=== PATIENT | female | born 1935 | race Caucasian/White ===

== ENCOUNTER 2016-04-03 14:00 | Outpatient (CLI) | payer MEDICARE, MEDICAID ==
--- NOTE | 2016-04-10 22:58 | CONSULTATION NOTE ---
DATE OF CONSULTATION: 04/03/2016 00:00:00 REQUESTING PROVIDER: DANIELLE Houser TIME OF VISIT: 1400 to 1515 TOPIC: Initial palliative care consult. Thank you, DANIELLE Houser, for asking the palliative care consult service to be involved in the care of your patient. I am asked to provide support as far as defining goals of care and symptom management in the patient's setting, which is the [facility]. History obtained from sons, medical records. EXAMINATION LIMITATIONS: There is very little information because of patient's severe Alzheimer's as far as her medical records and knowledge of her history. BRIEF HISTORY OF PRESENT ILLNESS: This is an 81-year-old woman with severe and advanced Alzheimer's. She has been in her current setting for several years now but most recently had aspirated. It is uncl ear exactly the etiology but suspected aspiration on vomitus. She did end up with severe shortness of breath and wheezing, sent to the ER, spent several hours there. Her chest x-ray and exam did not rev eal any specific findings and was sent back to the facility. Unfortunately, she continued to worsen w ith increased shortness of breath, hypoxia, and concern for pneumonia. She was then seen by her PCP i n the facility and started on azithromycin and nebulizing treatments and has continued to improve. To day I find her with just some upper airway expiratory wheezing, no longer needing oxygen. She is eati ng and drinking without any difficulty, almost back to her baseline, and appears quite comfortable. In the context of this episode there was discussion about defining goals of care as the patient's [facility] form IS A DO NOT RESUSCITATE AND COMFORT MEASURES ONLY. This always puts facilities in a place of weighing benefits and burdens but, given regulations, often has to send them in. The patient is on ve ry few medications, does not have any behavioral issues. She is mostly nonverbal, a few words here an d there. She does not follow any directions or cuing. She does have some significant toning and is po sitioned in an extensive positioning in her wheelchair, thus causing increasing risk for sliding out and falls. She has remained weight neutral, between 140-148 over the last year. She is not on any med ications to manage her behaviors. Her most significant symptom, and this is from the past, was pickin g. They have her on some hydroxyzine and has, as best we know, no longer been a problem. PAST MEDICAL HISTORY: Positive for severe dementia, being wheelchair bound; osteoporosis; and a right knee replacement. MEDICATION ALLERGIES: NONE. MEDICATIONS: Her current medication list includes: 1. Alendronate sodium 35 mg 1 tablet once weekly. 2. Citalopram 20 mg daily. 3. Docusate sodium 100 mg b.i.d. 4. Hydroxyzine 25 mg 1 tab b.i.d. 5. Oyster shell calcium 500 mg b.i.d. 6. Senolax 8.6 mg 1 tab daily. 7. Vitamin D3 1000 units daily. 8. Acetaminophen 325 mg 2 tabs every 6 hours p.r.n. 9. Enema as needed for constipation. 10. Fleets glycerin suppository as needed for constipation if no results from milk of mag. 11. Ipratropium albuterol 0.5 ml 2.5 mg in 3 mL, inhale 3 mL via nebulizer every 4-6 hours as needed . 12. Milk of mag 30 mL p.r.n. 13. MiraLax 17 grams daily as needed for constipation. 14. Transderm scop apply 1 patch to hairless area behind ear q.3 days p.r.n. for increased secretions . CODE STATUS: THE PATIENT IS A DO NOT ATTEMPT RESUSCITATION, COMFORT MEASURES ONLY. Please see palliat hilary care discussion; this was redone, the POLST today without changes on those 2 points. SOCIAL HISTORY: The patient was actually a fairly gregarious, outgoing woman in her time. She loved [employer]. She was in a choir that sang [employer] and actually sang at the [employer]. She is [employer]ol [employer]. She has had multiple careers over the lifetime. She has 2 sons and a daughter. She and her second lived in [place] for 7 years and had a baking business. 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 Marital status: . Use of alcohol, tobacco: None. FAMILY HISTORY: The patient is adopted and so it is unknown. Actually, we had a yulissa discussion abo ut doing possibly ancestry swab for the children to get more information. PERFORMANCE STATUS: The patient is wheelchair/bed bound. She is unable to bear weight. She has quite a bit of extensive toning, some contractures in her knees and hips. She is total assist with feeding. She has not had any observations of choking by caregivers noted. She is quite cooperative. She is in continent of bowel and bladder, and is in a wheelchair that does not fit her appropriately. I would p ut her at a palliative care performance status of 40%. REVIEW OF SYSTEMS: This is a somewhat limited. Input from the caregivers: ENT: No notable swallowing problems, does need to be fed. CARDIOVASCULAR: No signs of pain or cardiac pain. RESPIRATORY: They have noted she has been somewhat wheezy, but her respiratory status has improved si nce her trip to the ED on 03/11. GASTROINTESTINAL: She has intermittent loose stools. She had one during our visit. GENITOURINARY: She is incontinent of urine. MUSCULOSKELETAL: She is quite stiff with lots of toning. INTEGUMENTARY: She has no skin breakdown or rash. Her sons report she has had issues with picking in the past. NEUROLOGIC: She has been fairly nonverbal and unable to communicate meaningfully for several years. S he did used to sing up to a couple months ago, if you asked her a question, her answers, but this has somewhat fallen off as well. She does present with a peaceful and smiley affect. PSYCHIATRIC: In reviewing her history, the patient did not have any or delusions or hallucinations; i t was mostly just deteriorating memory and poor judgment, and unable to take care of her activities o f daily living that preceded her admit here to [facility]. ENDOCRINE: No history of hyperthyroidism or diabetes, as best we know. HEMATOLOGIC/IMMUNOLOGIC: Most recently was treated for presumed pneumonia or aspiration pneumonia. PHYSICAL EXAMINATION GENERAL APPEARANCE: She does appear somewhat fatigued, pale in color, quite smiley in countenance. EYES: Normal on inspection. She tends to keep them closed, squeezed closed, but opens them easily. ENT: Mucous membranes are moist, no signs or symptoms of candidiasis. NECK: Trachea is midline. RESPIRATORY: As above, she has some upper expiratory wheezing. CARDIOVASCULAR: Her rate was regular at 88. Temperature 97.2. Oxygen saturation 95% on room air. Her blood pressure 122/82. ABDOMEN: Rounded. Bowel tones active. Incontinent of liquid brown stool. SKIN: Slightly dry, particularly on the back of her forearms; otherwise no signs or symptoms of skin breakdown. Her coccyx is clear. EXTREMITIES: She does have some mild tremors in her upper extremities. No edema. PALLIATIVE CARE DISCUSSION: Who was present: Her son, Armaan Wellington (Harry), who is her POA; as well as her other son, Abdelrahman Wellington. We did discuss, in the context of their perception of her current q uality of life, recognizing that she continues to progress with her dementia. They had not had long o r extensive discussions in the past with their mother about her wishes in the future. They do want to focus most of her care on comfort, recognizing that she is quite frail and fragile and at risk for t he sequela of an event. We did discuss, in the context of dementia, end of life is usually infections or as a result of the sequela of a fall; that each time these situations, as they have just recently experienced, are faced with weighing the benefits and burdens of intervention and how much intervent ion. Their goal again is to keep her comfortable and would not want her to suffer in any way. They ar e not opposed to treatment of infections at this point in time, but would need to be in the context a gain for comfort and hoping to avoid hospitalization. We did review the POLST as it did have a trial of tube feeding. We did discuss in the setting of her current disease process that this would most li des put her at higher risk for aspiration as well as prolong her dying process and her suffering. As far as looking forward to end of life, neither one feels that they would be able to take care of her in their own home setting and would prefer to have Hospice in [facility] at the point of time that she does meet that threshold or criteria. Did review that for patients with dementia it is often a fa irly long course with crises that can come up as events occur, and Hospice criteria does include many times with multiple hospitalizations or infections or, if they choose at some point not to treat inf ection, as well as weight loss and further decline. In discussing the role of palliative care, I am m onitoring her for further decline and being able to focus on issues of comfort for her. IMPRESSION: This is an 82-year-old woman with advanced stage Alzheimer's who continues to decline. Sh e most recently was treated for upper respiratory infection with just some residual wheezing currentl y. The patient does need a uzib-md-tkict wheelchair to facilitate safety, feeding, and comfort. Famil y goals include focusing on avoiding hospitalization, keeping her comfortable, and a comfortable resp ectful at her end of life. RECOMMENDATIONS/COUNSELING DONE 1. Wheezing. The patient still has some residual upper airway wheezing. Will have the staff give her nebulizer treatment scheduled for a few days until this is cleared. The patient does present with hig h risk for aspiration and further decline. 2. Loose stool. Will decrease her docusate sodium and re-evaluate in 2 weeks. Bowel program. 3. Rigid extension and muscle tone of her back. The patient does require a ivlc-cg-hwydw wheelchair a s she is wheelchair bound. Currently, given her extensive toning and unable to sit properly in a whee lchair, she does need it for positioning. She is dependent on the wheelchair to be able to participat e in eating, transfer to the shower, and as well as mobility in the home. She is in a facility that i s able to provide assistance with the wheelchair. She would benefit for this hhgs-yv-rilfo for proper positioning, decreasing her pressure as she does have some pressure points where she tones against t he edge of the wheelchair. They will continue with pursuit of a zvwg-xm-tutxe wheelchair order. There is one available that the family may choose to purchase if it fits her appropriately and would be mo re immediate solution to the current problem. 4. Advanced care planning. I did spend quite a bit of time with both sons talking about goals of care , decision making and decision making points in the future regarding their mother, limitations in the context of this setting, looking forward at Hospice criteria. I did provide [facility] [place] [facility] as a reference. The agreement was I would follow up with their mother in another couple weeks to see if she continues to recover from her current episode, and check in every few months to rio he r decline and make sure the focus is on comfort, simplify medications as needed, and continue to eval uate for swallowing difficulties. Thank you, DANIELLE Houser, for asking the palliative care consult service to be involved in the care of your patient. The patient's prognosis, when measured on the Doug index for nursing h ome adults age 65 and older with an outcome of 6 months survival out of 100 shelter adults with similar answers, 28 will and 72 will survive over the next 6 months but calculators cannot predic t the future for any one individual, but do give an estimate of how many people with similar risk fac tors will live and , but they cannot identify who will live and . TIME SPENT: 75 minutes, with greater than 50% of this done in counseling with the family, coordinatin g care within the facility, and anticipatory guidance. JOB #: [id number] EXT JOB #:[id number]
== END 2016-04-03 14:01 | disposition home or self-care (01) ==
LOC: PC 14:00
PROVIDERS: ATTEND Nurse Practitioner Adult Health
DX: R06.00 Dyspnea, unspecified (principal); G30.8 Other Alzheimer's disease; F02.80 Dementia in other diseases classified elsewhere, unspecified severity, without behavioral disturbance, psychotic disturbance, mood disturbance, and anxiety; R06.02 Shortness of breath; R09.02 Hypoxemia; Z99.3 Dependence on wheelchair; M81.0 Age-related osteoporosis without current pathological fracture; Z96.651 Presence of right artificial knee joint; M24.552 Contracture, left hip; M24.551 Contracture, right hip; M24.562 Contracture, left knee; M24.561 Contracture, right knee; N39.498 Other specified urinary incontinence; J18.9 Pneumonia, unspecified organism; R06.2 Wheezing; Z91.81 History of falling; Z66 Do not resuscitate; Z51.5 Encounter for palliative care

== ENCOUNTER 2016-04-09 11:15 | Outpatient (CLI) | payer MEDICARE, MEDICAID | END 2016-04-09 11:16 | disposition home or self-care (01) | DX: J18.9 Pneumonia, unspecified organism (principal); R19.7 Diarrhea, unspecified; G30.9 Alzheimer's disease, unspecified; F02.80 Dementia in other diseases classified elsewhere, unspecified severity, without behavioral disturbance, psychotic disturbance, mood disturbance, and anxiety; Z99.3 Dependence on wheelchair; Z51.5 Encounter for palliative care ==

== ENCOUNTER 2016-04-30 | Outpatient (CLI) | payer MEDICARE, MEDICAID ==
--- NOTE | 2016-05-01 09:10 | CONSULTATION NOTE ---
DATE OF CONSULTATION: 04/30/2016 00:00:00 TIME OF VISIT: 1111:30. TOPIC: Followup palliative care consult. Thank you, Mima Portillo, for asking the palliative care consult service to be involved in the c are of your patient. I am seeing the patient in followup after her community-acquired pneumonia. She is seen in her home setting, which is [facility] dementia unit. It is a considerable and taxing effo rt for her to leave the facility as she is wheelchair bound. BRIEF HISTORY OF PRESENT ILLNESS/INTERVAL UPDATE: The patient does have severe endstage Alzheimer's, who presents with a FAST 7B. She presented in mid February for a presumed aspiration pneumonia and wa s treated with azithromycin and nebulizer treatment and did improve. She had a recurrence, unclear if aspiration versus community-acquired. There has been much illness in the facility and was treated on 04/09. She has continued to improve. Today, I find her doing quite well. She has been off of the oxy gen now for 3 days. Her oxygen sats are 97%. She shows no respiratory effort. No cough. She seems mor e alert and staff have found about her more interactive. She has no inspiratory or expiratory wheezin g. Her breath sounds are diminished, but clear. I have followed up with staff who feed her. Nobody vargas s seen any evidence of choking or difficulty with thin or fluids or solid foods. She is afebrile toda y at 96.9. The patient is quite "smiley" and did actually when asked to sing, which is her baseline l ovely behavior, she was able to do that several times, which is helpful as far as actually evaluating her respiratory status. I am meeting today with her daughter per her request. She was not present with the family meeting on original admit. Her name is Yael Kramer, . She is quite pleased to see her mother doing be tter. REVIEW OF SYSTEMS: This is quite difficult to do. The staff report her appetite has been good. She vargas s been sleeping without any difficulty. She has no agitation. She does sleep on and off, mostly throu gh the day. This is her baseline. She is getting more difficult to transfer. She does plank and is qu ite stiff. It is precarious at best in the wheelchair. They had tried the cdrw-tt-qvwma wheelchair th at had been donated; unfortunately it was too large for her and posed more of a safety risk. PHYSICAL EXAMINATION GENERAL APPEARANCE: She is a slightly pale. Her respiratory effort is much improved. EYES: She has them open today, does make eye contact. ENT: Mucous membranes are moist. NECK: Trachea midline, no JVD. RESPIRATORY: As noted above. CARDIOVASCULAR: Her pulse is 73, blood pressure 122/72. Her heart rate is irregular. She has a fairly pronounced murmur. ABDOMEN: Soft. She still has been having loose stools. SKIN: Color is pale. No report of skin breakdown. She is dressed during our exam. EXTREMITIES: No lower extremity edema. IMPRESSION: This is a very sweet, severe end-stage Alzheimer's, who presents as 7B. Her pneumonia has resolved with no residual symptoms. RECOMMENDATIONS/COUNSELING DONE 1. Community-acquired pneumonia. This appears to be resolved. We will change her back to her DuoNebs to do as p.r.n. 2. Diarrhea. Had held the bowel medications for 10 days. We will go ahead and hold these indefinitely at this point in time. 3. Dementia without behavioral disturbances. She does seem quite content. Staff reports no difficulty with her behaviors. 4. Rigid extension and muscle tone of her back. The patient has required tilt in space wheelchair; hardy arvizu is wheelchair bound, currently, given her aspects of toning and planking and unable to prop her in a wheelchair. She does need it for positioning. She is dependent on the wheelchair to be able to part icipate in eating, transfer to the shower, as well as mobility at her current setting. There is staff to provide assistance with the wheelchair. She would benefit for the tilt in space for proper positi oning, decrease her pressure points when she tones at the edge of the wheelchair, as well as safe eat ing and swallowing. She is a [facility] patient. We will go ahead and order that through [employer], got permission from the home health director. Face to face for physical therapy to do a [facility] eval and evaluate and treat if any training for staff on range of motion, as well as a wheel chair sitting. 5. Advanced care planning. The patient does have her new POLST in place, which is a DO NOT RESUSCITAT E, COMFORT MEASURES ONLY, DETERMINE THE USE OR LIMITATION OF ANTIBIOTICS WHEN INFECTION OCCURS WITH C OMFORT THE GOAL AND NO MEDICALLY ASSISTED NUTRITION BY TUBE. I did spend quite a bit of time with the daughter in reviewing goals of care for her mom, some of her life review, and anticipatory jose ramon ce. TIME SPENT: Thirty minutes with greater than 50% of this done in counseling and coordination of care, follow up with facility, physical therapy. They are not able to accommodate this because of her insu cecilia status. We will have Mima Portillo as her PCP order physical therapy for wheelchair eval, as well as facilitate getting the tilt in space. JOB #: [id number] EXT JOB #:[id number]
== END 2016-04-30 11:01 | disposition home or self-care (01) ==

== ENCOUNTER 2016-08-06 11:00 | Outpatient (CLI) | payer MEDICARE, MEDICAID ==
--- NOTE | 2016-08-07 06:29 | CONSULTATION NOTE ---
DATE OF CONSULTATION: 08/06/2016 00:00:00 REQUESTING PROVIDER: DANIELLE Houser. TIME OF VISIT: 11:15 to 12:15. TOPIC: Followup palliative care consult. Thank you, Mima Portillo, for asking the palliative care consult service to be involved in the c are of your patient. I am following up the patient in her home setting, which is [facility] dementia unit as it is a considerable and taxing effort for her to leave the facility, as she is wheelchair b ound. 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 She most recently in February was treated for presumed aspiration pneumonia. She did recover from this and was doing fairly well. I am seeing her today. There is concern about her le ade of sedation, she may just be sleeping more. In reviewing her medications, did look at some things that we might be able to decrease. I am meeting here with her daughter, Flores Kramer, and son, Addy arauz. She has moved rooms. Does not appear in any kind of distress. I did follow up with staff. She has had no neuropsychiatric behaviors. She is quite cooperative, but does spend most of her time, probabl y 70-80% of the time sleeping, mostly upright in her chair. Unfortunately, still has not gotten the t [id number] wheelchair so that it used appropriately. Originally, had written for therapy to come in and order it. They had decided to pay to have one refurbished. REVIEW OF SYSTEMS: This is quite difficult to do. Appetite has been good. She has been fairly weight neutral. Her most recent weights were March, 146.2; April, 148.2; May, 147.2; June, 149.2; an d July, 145. As far as accuracy, these are done with weighing the patient and then weighing the wheelc hair. She is getting more difficult to transfer, does what I call "plank" and is quite stiff. Is prec arious at best in the wheelchair. Thus, this is a huge safety issue. PHYSICAL EXAMINATION GENERAL: She is slightly pale. She is less interactive than our last visit. She is keeping her eyes c losed most of the time despite being here with her children. She has no symptoms or signs of pain beh aviors, agitation or distress. EYES: Slight periorbital edema. ENT: Her mucous membranes are moist, and she will not allow me to do an oral exam. NECK: Trachea midline. No lymphadenopathy. RESPIRATORY: Breath sounds are diminished, but difficult to evaluate as she does not take deep breath s. VITAL SIGNS: Temperature 97.5, O2 saturation on room air 95%, pulse 67, blood pressure 102/62. HEART: Her heart is very irregular and has a fairly pronounced murmur. ABDOMEN: Soft with regular with bowel movements. SKIN: Color is pale. I did check with staff. No report of skin breakdown. She does have a slight rash on the right fold and around her lips. This is not new per her daughter's report. They are using obinna e Aquaphor. She does have some moist desquamation under her right breast. EXTREMITIES: Her feet are slightly cool to touch. No lower extremity edema. CURRENT MEDICATIONS Include 1. Alendronate sodium 35 mg weekly on an empty stomach. 2. Citalopram 20 mg daily. She has been on this long-term. 3. Docusate sodium 100 mg soft gels daily. 4. Hydroxyzine 25 mg b.i.d. 5. Oyster shell calcium 500 mg 1 tab twice a day. 6. Senolax 8.6 mg tabs every evening. 7. Vitamin D3 1000 units daily. 8. Acetaminophen 325 mg 2 tabs every 6 hours as needed for pain. 9. Enema p.r.n. for constipation if no results from milk of magnesium. 10. Fleets glycerin suppository if no results from milk of magnesium. 11. Ipratropium albuterol 0.5/3 2.5 mg of 3 mL, 1 q.6h. p.r.n. wheezing. 12. Milk of magnesium 30 mL daily as needed for constipation. 13. Morphine sulfate 20 mg/mL, 1/2 mL 10 mg every 4 hours as needed for pain. 14. Polyethylene glycol 17 grams every day as needed p.r.n. constipation. 15. Transderm scop 1.5 every 3 days as needed for increased secretions. May have a podiatry consultat ion. 16. Hydrocortisone HC 25 mg suppository 1 once a day as needed for hemorrhoid discomfort. 17. O2 at 2 liters as needed for comfort measures only. IMPRESSION: This is an 81-year-old yulissa woman who is very sweet with severe end-stage Alzheimer's. She presents as a FAST 7B. She has no neuropsychiatric symptoms, but does appear to have some slow de rodriguez, which includes increased sleeping, less interactive, and less responsive to her environment. RECOMMENDATIONS/COUNSELING DONE 1. Dementia with behavioral disturbances. I will go ahead and discontinue her a.m. hydroxyzine and se e if she does "perk up a little bit." I will leave the one in the evening. She was originally started on this, as she had neuropsychiatric scratching and itching issues. Currently she is quite weak and stiff. Does not appear to be able to really manifest this at this point in time. 2. Constipation. Her bowels are moving on a regular basis and has not needed any extra house bowel pr ogram. 3. Rigid extension muscle toning of her back again. I am quite concerned she is not in a [id number] e wheelchair, as she is wheelchair bound. She does continue to have toning and planking. I did follow up with the facility director. She will call [facility] [place] for repair as this was the agreemen t. 4. Nutrition. Daughter is concerned about the patient's sedentary weight gain over the last several y ears. She currently actually has lost a few pounds in the last month. We did discuss benefits and bur dens. One of the things she enjoys is eating, but they had to buy new clothes recently. I did discuss with the facility director what might be some options. The goal would not be for weight loss, but po ssibly weight maintenance at this point in time. We will look at portion control and trading out some fruits and vegetables just to see if this is of help and monitor her weight carefully in response to this. 5. Depression. The music volunteer who is providing companionship and music therapy program did come at the end of the visit, I was able to introduce her to the family. She did demonstrate what she does with the patient, as well as the opportunity to ask more questions about the patient's history. It w as a nice family conference. TIME SPENT: 60 minutes with greater than 50% of this done in counseling and coordination of care, fol lowup on the wheelchair, dietary orders, as well as evaluation of her current status. The patient has recently moved. She is in a warm room. I am a little bit concerned as far as patient comfort, as wel l as is the family. She does appear quite content but somewhat more lethargic and will adjust medicin es accordingly and revisit this in a few weeks. Thank you, DANIELLE Houser, for asking the palliative care consult service for providing sup port for this patient and family in this very difficult situation. We will continue to follow and mon itor her on a regular basis and as needed for any acute needs. JOB #: [id number] EXT JOB #:[id number]
== END 2016-08-06 11:01 | disposition home or self-care (01) ==
LOC: PC 11:00
PROVIDERS: ATTEND Nurse Practitioner Adult Health
DX: Z51.5 Encounter for palliative care (principal); F03.91 Unspecified dementia, unspecified severity, with behavioral disturbance; K59.00 Constipation, unspecified; Z99.3 Dependence on wheelchair; R63.5 Abnormal weight gain; F32.9 Major depressive disorder, single episode, unspecified; R01.1 Cardiac murmur, unspecified; Z79.891 Long term (current) use of opiate analgesic

== ENCOUNTER 2016-12-03 15:15 | Outpatient (CLI) | payer MEDICARE, MEDICAID ==
--- NOTE | 2016-12-03 17:56 | PROVIDER PROGRESS NOTE ---
Palliative Care Follow Up - Referral Referring Provider: DANIELLE Houser Referral setting: Assisted living (I am following up with the patient in her home setting, which is [facility] dementia unit, as it is a considerable and taxing effort for her to leave the facility as she is wheelchair bound secondary to end-stage dementia.) - Information Sources History obtained from: Caregiver Exam limitations: Clinical condition (Advanced dementia) - History of Present Illness Update Brief HPI Update: This is an 81-year-old woman with severe and advanced Alzheimers dementia. She has been in her current setting for several years now. She was treated for aspiration pneumonia in March. Nursing reported a lesion under R breast that is "reddened, hard and tender with some pus under the skin, 1.3x1.5cm raised 0.2cm, looks like a boil in appearance." Upon assessment, it is a drying, scabbed lesion without exudate, redness, warmth, or tenderness. The surrounding it is clean and dry; the skin under the breast is also dry, a normal coloration and is clear of rash. Nystatin powder had been recently applied. Nursing reports stability with no neuropsychiatric behaviors. She has a good appetite and her weight has steadily increased; from 140-148 lbs at since last year and into the beginning of this year, and currently its around 151-153 lbs since September 2016. Unable to conduct a review of systems due to her mostly non-verbal status and lack of response. She mostly looked straight ahead during my assessment and verbalizes once or twice. She had been attending the [employer] service when I came , alert, sitting in her [id number] wheelchair. I reconciled medications and reordered morphine (script ) and retained ipratropium-albuterol nebulizer due to her risk for aspiration pneumonia. I renewed hydrocortisone suppository script for occasional constipation and possible hemorrhoid flairs. Information obtained from nursing staff, and EMR chart notes from Palliative Care CLINICAL PROGRAM MANAGER. Social History - Living Situation Living arrangement: Assisted living Living Situation: With caregiver(s) Support System: Her son and POA lives in the area, in [facility]. Medications/Allergies - Medications Home Medications: Ambulatory Orders Medication Instructions Recorded Confirmed Alendronate [Fosamax] 35 mg PO TITR 01/13/14 12/05/16 Calcium Carbonate/Vitamin D3 500 mg PO DAILY 01/13/14 12/05/16 [Oyster Shell 500 mg + Vit D Tb] Cholecalciferol (Vitamin D3) 1,000 units PO DAILY 01/13/14 12/05/16 [Vitamin D-3] Citalopram [CeleXA] 20 mg PO DAILY 01/13/14 12/05/16 Docusate Sodium 100 mg ORAL DAILY 01/13/14 12/05/16 Hydroxyzine HCl 25 mg ORAL DAILY 01/13/14 12/05/16 Senna [Senokot] 17.2 mg PO QPM 03/10/16 12/05/16 Acetaminophen 650 mg PO Q6H PRN 12/05/16 12/05/16 Hydrocortisone Acetate 25 mg PA DAILY PRN 12/05/16 12/05/16 Ipratropium/Albuterol Sulfate 1 inhaler PO Q4H PRN 12/05/16 12/05/16 [Iprat-Albut 0.5-3(2.5) mg/3 ml] Magnesium Hydroxide [Milk of 30 ml PO Q1H PRN 12/05/16 12/05/16 Magnesia] Morphine Sulfate [Morphine Sulf 10 mg PO Q1H PRN 12/05/16 12/05/16 Oral (Roxanol)] Polyethylene Glycol 3350 [Miralax] 17 gm PO DAILY PRN 12/05/16 12/05/16 - Allergies Allergies/Adverse Reactions: Allergies Allergy/AdvReac Type Severity Reaction Status Date / Time No Known Drug Allergies Allergy Verified 03/10/16 21:52 Review of Systems - Constitutional Constitutional: denies: Poor appetite (recent weight gain) - Other Findings Other Findings: Unable to obtain ROS from patient. Nursing staff supplied information regarding behavior and status. Physical Examination - Vital Signs Temperature: 97.4 C Pulse Rate: 84 O2 Saturation: 95 Blood Pressure: 122/80 - Physical Exam General Appearance: positive: No acute distress, Other (Not responsive, does not follow commands.) Eyes Bilateral: positive: No lid inflammation, Conjunctivae nml, No scleral icterus, Other (Minimal yellow, crusty exudate around L eye) ENT: positive: No signs of dehydration Neck: positive: Trachea midline Respiratory: positive: No respiratory distress Cardiovascular: positive: Regular rate & rhythm Abdomen: positive: Nml bowel sounds, Hepatomegaly. negative: Guarding Skin: positive: No symptoms, Other (Small lesion under R breast, drying up and resolving. No signs of fungal rash under bilateral breasts.) Extremities: positive: No pedal edema Neurologic/Psychiatric: positive: Disoriented to person, Disoriented to place, Disoriented to time Palliative Care - POLST Patient has POLST: Yes POLST Status: DNR, Comfort Measures Pain: No pain Drowsiness: None Nausea: None Anxiety: None Dyspnea: None Anorexia: None Insomnia: Sleeps well Constipation: Managed Feelings of wellbeing/Perceived Quality of Life: No change Performance Status: Current level of functioning: Severe dementia, very little verbalization, requires assistance with all ADLs, mainly in wheelchair and sleeping 70-80% of time, still attends facility functions, has music volunteer from Palliative Care visit her. Last documented visit 11/09/16. Palliative Care Performance Status: 50% - Palliative Care Discussion: Who is present: Patient and myself Surrogate decision maker: Daughter Flores Kramer, . Son Abdelrahman Wellington(?), Patient/Family understanding of the illness: Patient has no insight into her condition. Most important goals: Comfort and transition to Hospice when appropriate. Impression and Recommendations - Palliative Care Impression: This is an 81-year-old woman with quite advanced end-stage Alzheimers, whose functionality is in a slow, steady decline. She has had a steady increase in weight due to a good appetite; portion control and restriction of high-calorie food or snacks would be appropriate. Her skin lesion is resolving. She appears comfortable at present. Monitor and transition to hospice when appropriate. Recommendations/Counseling Done: 1. Dementia: Stable, with slow decline. Sleeps much of the time, does participate in facility activities. Continue Palliative Care music volunteer and supportive care. 2. Lesion under R breast: Resolving without treatment. Continue to monitor. OK to discontinue Nystatin powder under breasts, but monitor and reapply if moisture occurs. Also can insert small, soft rolled up towel beneath breasts as preventative measure against skin rash. 3. Weight gain: Continue portion control, increase vegs and fruit; minimize desserts and fruit juices. Medication list reconciled, see HPI for details. Time Spent: 15 minutes with greater than 50% of this done in evaluation and coordination of care.
== END 2016-12-03 15:16 | disposition home or self-care (01) ==
LOC: PC 15:15
PROVIDERS: ATTEND Nurse Practitioner
DX: Z51.5 Encounter for palliative care (principal); G30.9 Alzheimer's disease, unspecified; F02.80 Dementia in other diseases classified elsewhere, unspecified severity, without behavioral disturbance, psychotic disturbance, mood disturbance, and anxiety; L98.9 Disorder of the skin and subcutaneous tissue, unspecified; R63.5 Abnormal weight gain; K59.00 Constipation, unspecified; Z87.01 Personal history of pneumonia (recurrent); Z66 Do not resuscitate

== ENCOUNTER 2016-12-26 11:30 | Outpatient (CLI) | payer MEDICARE, MEDICAID ==
--- NOTE | 2016-12-26 13:38 | CONSULTATION NOTE ---
Palliative Care Follow Up - Referral Referring Provider: DANIELLE Houser Time of Visit: 11:30 Referral setting: Assisted living (Seen in home setting, which is [facility] dementia unit, as it is a considerale and taxing effort for her to leave the facility as she is wheelchair bound secondary to end-stage dementia.) - Information Sources Records reviewed: RN notes reviewed, Previous records reviewed History/Review of Systems obtained from: Nursing Exam limitations: Clinical condition (Advanced dementia) - History of Present Illness Update Brief HPI Update: This is an 81-year-old woman with severe and advanced Alzheimers dementia. She has been in her current setting for several years now. Two days ago Nursing reported the patient wheezing and with decreased O2 sats of 89% and respirations of 31. The staff erroneously thought there was no order to oxygen; there is an order for 2L. She had no fever, no respiratory distress, no cough and was eating breaskfast with O2 lalito of 90-91%. Today is a follow up visit, and I find the resident is calm and pleasant, interacting with me and making some comments which I was not able to understand. She was more cooperative and less stiff in her upper extremities than she was during my initial visit 3 weeks ago. She is not displaying any signs of distress. Mild expiratory wheezes were heard via auscultation on L posterior upper lobe and R anterior upper lobe. She has no fever, diaphoresis, cough, altered mental status or malaise. Nursing reports no behaviors, and she is functionally stable at this time. Social History - Living Situation Living arrangement: Assisted living Living Situation: With caregiver(s) Support System: Her son/DPOA, Ace Wellington ([place]), lives in the [facility], [facility] Medications/Allergies - Medications Home Medications: Ambulatory Orders Medication Instructions Recorded Confirmed Alendronate [Fosamax] 35 mg PO TITR 01/13/14 12/05/16 Calcium Carbonate/Vitamin D3 500 mg PO DAILY 01/13/14 12/05/16 [Oyster Shell 500 mg + Vit D Tb] Cholecalciferol (Vitamin D3) 1,000 units PO DAILY 01/13/14 12/05/16 [Vitamin D-3] Citalopram [CeleXA] 20 mg PO DAILY 01/13/14 12/05/16 Docusate Sodium 100 mg ORAL DAILY 01/13/14 12/05/16 Hydroxyzine HCl 25 mg ORAL DAILY 01/13/14 12/05/16 Senna [Senokot] 17.2 mg PO QPM 03/10/16 12/05/16 Acetaminophen 650 mg PO Q6H PRN 12/05/16 12/05/16 Hydrocortisone Acetate 25 mg GA DAILY PRN 12/05/16 12/05/16 Ipratropium/Albuterol Sulfate 1 inhaler PO Q4H PRN 12/05/16 12/05/16 [Iprat-Albut 0.5-3(2.5) mg/3 ml] Magnesium Hydroxide [Milk of 30 ml PO Q1H PRN 12/05/16 12/05/16 Magnesia] Morphine Sulfate [Morphine Sulf 10 mg PO Q1H PRN 12/05/16 12/05/16 Oral (Roxanol)] Polyethylene Glycol 3350 [Miralax] 17 gm PO DAILY PRN 12/05/16 12/05/16 Ipratropium/Albuterol Sulfate 3 ml TID MDD for 5 days only 12/26/16 12/26/16 [Iprat-Albut 0.5-3(2.5) mg/3 ml] Nystatin [Nyata] 1 ea TOP Q12H PRN 12/26/16 12/26/16 Oxygen 2 l BLADIMIR PRN MDD via nasal cannula 12/26/16 Prednisone 20 mg PO DAILY MDD for 5 days only 12/26/16 12/26/16 Scopolamine [Transderm-Scop] 1 each TD Q72H 12/26/16 12/26/16 - Allergies Allergies/Adverse Reactions: Allergies Allergy/AdvReac Type Severity Reaction Status Date / Time No Known Drug Allergies Allergy Verified 03/10/16 21:52 Review of Systems - Constitutional Constitutional: reports: Weight gain (Nov 22 153.4 lbs. Nov 10 153.6 lbs. Nov 07 163.4 lbs. Nov 05 153 lbs. Sep 22 151 lbs. Sep 21 151 lbs. August 27 149 lbs. July 25 145 lbs. Jun 25 149.2 lbs. May 25 147.2 lbs.), Other - Ears, Nose & Throat Ears, Nose & Throat: reports: Hearing loss - Cardiovascular Cardiovascular: denies: Edema - Neurological Neurological: reports: Memory problems - Other Findings Other Findings: Unable to obtain from resident due to advanced dementia. Partial ROS obtained from Nursing and staff. Physical Exam - Vital Signs Temperature: 97.3 F Pulse Rate: 80 O2 Saturation: 95 (on room air) Blood Pressure: 120/80 - Physical Exam General Appearance: positive: No acute distress Eyes Bilateral: positive: EOMI, No lid inflammation, Conjunctivae nml, No scleral icterus ENT: positive: No signs of dehydration Neck: positive: Thyroid nml, Trachea midline Cardiovascular: positive: Regular rate & rhythm, No murmur, No gallop Respiratory: positive: No respiratory distress, Diminished in bases (Resident is not breathing deeply), Wheezes (mild, expiratory on R anterior and L posterior). negative: Rales, Rhonchi Abdomen: positive: Non-tender, Soft Skin: positive: No symptoms Extremities: positive: Non-tender, Nml appearance, No pedal edema, Other ( Stiffness, rigidity of extremities) Neurologic/Psychiatric: positive: Disoriented to person, Disoriented to place, Disoriented to time, Weakness, Unintelligible speech Palliative Care - POLST Patient has POLST: Yes POLST Status: DNR, Comfort Measures Pain: No pain Tiredness/Fatigue: None Drowsiness/Sedation: None Nausea: None Depression: None Anxiety: None Dyspnea: None Anorexia: None Sleep: Sleeps well (No s/s of respiratory distress, O2 sats 95% on RA) Performance Status: Current level of functioning: Severe dementia, very little verbalization, requires assistance with all ADLs, wheelchair-bound, sleeps 70-80% of time, attends facility functions. Palliative Care Performance Status: 50% FAST: 7B - Palliative Care Discussion: Who is present: Patient and myself Surrogate decision maker: Son/DPOA Ace "Armaan" Amish . Daughter Flores Kramer, . Son Abdelrahman Wellington, Most important goals: Keep her comfortable, ok to use antibiotics with comfort as goal, avoid hospitalization, and transition to Hospice when appropriate. DPAC Armaan Wellington is in agreement with starting steroids to alleviate the wheezing. Impression and Recommendations - Palliative Care Impression: This is an 81-year-old woman with quite advanced end-stage Alzheimers, whose functionality is in a slow, steady decline. Earlier this week experienced wheezing and labored breathing, with O2 sats dropping to 89%. She has a history of and high risk for recurrent aspiration pneumonia but her O2 sats are now at 95%, she has no malaise, fever, or respiratory distress, but does have a mild expiratory wheeze. Antibiotics are not indicated at this time, but she should be monitored closely for changes in her status. Recommendations/Counseling Done: 1. Advanced dementia with behavior disturbance: stable without behaviors disturbance. Continue hydroxyzine for neuropsychiatric scratching. She continues to enjoy the music volunteer who visits her. 2. Wheezing: Mild wheezing, no signs/symptoms of dyspnea or respiratory distress. O2 sats are 95% on room air. Start prednisone 20mg daily for 5 days, start routine Duoneb nebulizer TID for 5 days, and continue Duoneb PRN. Use morphine and oxygen at 2 liters PRN for comfort only, to relieve respiratory distress. No indication for antibiotics at present, but will continue to monitor for changes and will follow up next week. 3. Advanced care planning: DPOA's goals are to keep patient comfortable, and to avoid hospitalization. Time Spent: 30 minutes with greater than 50% of this done in evaluation of symptoms and coordination of care with staff and weighing benefits and burdens of treatment and interventions.
== END 2016-12-26 11:31 | disposition home or self-care (01) ==
LOC: PC 11:30
PROVIDERS: ATTEND Nurse Practitioner
DX: Z51.5 Encounter for palliative care (principal); F03.91 Unspecified dementia, unspecified severity, with behavioral disturbance; R06.2 Wheezing; Z99.3 Dependence on wheelchair; Z66 Do not resuscitate

== ENCOUNTER 2017-01-13 12:30 | Outpatient (CLI) | payer MEDICARE, MEDICAID ==
--- NOTE | 2017-01-13 19:47 | CONSULTATION NOTE ---
Palliative Care Follow Up - Referral Referring Provider: DANIELLE Houser Time of Visit: 12:30 Referral setting: Assisted living (Seen in home setting, which is [facility] dementia unit, because it is a considerable and taxing effort for her to leave the facility secondary to advanced dementia and being wheelchair bound.) - Information Sources Records reviewed: RN notes reviewed, Previous records reviewed History/Review of Systems obtained from: Family, Nursing Exam limitations: Clinical condition (Advanced dementia) - History of Present Illness Update Brief HPI Update: [id number] for AP Mattress and Home Health Wound Care This is an 82-year-old woman with severe and advanced Alzheimer's dementia. She has been in this dementia unit setting for several years. She has a recent open coccyx wound, approximately 1.3 x 1.1 cm, unstageable due to eschar covering the wound bed. There is no redness surrounding the wound, the area is clean and dry with no heat or other signs of infection. Nursing has been using a barrier cream for protection. Due to lower extremity weakness, and advanced Alzheimer's dementia, patient is mobile only in wheelchair or bedbound and requires an AP mattress to promote healthy skin integrity as well as reduce reoccurrence of decubitus ulcers while in bed. Patient is calm and cooperative in bed, and after this examination was transferred by staff to wheelchair to go to lunch. She has no indications or signs of pain or discomfort. Social History - Living Situation Living arrangement: Assisted living Living Situation: With caregiver(s) (Her son/DPOA, Ace Wellington ([place]), lives in the region, at [facility].) Medications/Allergies - Medications Home Medications: Ambulatory Orders Medication Instructions Recorded Confirmed Alendronate [Fosamax] 35 mg PO TITR 01/13/14 12/05/16 Calcium Carbonate/Vitamin D3 500 mg PO DAILY 01/13/14 12/05/16 [Oyster Shell 500 mg + Vit D Tb] Cholecalciferol (Vitamin D3) 1,000 units PO DAILY 01/13/14 12/05/16 [Vitamin D-3] Citalopram [CeleXA] 20 mg PO DAILY 01/13/14 12/05/16 Docusate Sodium 100 mg ORAL DAILY 01/13/14 12/05/16 Hydroxyzine HCl 25 mg ORAL DAILY 01/13/14 12/05/16 Senna [Senokot] 17.2 mg PO QPM 03/10/16 12/05/16 Acetaminophen 650 mg PO Q6H PRN 12/05/16 12/05/16 Hydrocortisone Acetate 25 mg [place] DAILY PRN 12/05/16 12/05/16 Ipratropium/Albuterol Sulfate 1 inhaler PO Q4H PRN 12/05/16 12/05/16 [Iprat-Albut 0.5-3(2.5) mg/3 ml] Magnesium Hydroxide [Milk of 30 ml PO Q1H PRN 12/05/16 12/05/16 Magnesia] Morphine Sulfate [Morphine Sulf 10 mg PO Q1H PRN 12/05/16 12/05/16 Oral (Roxanol)] Polyethylene Glycol 3350 [Miralax] 17 gm PO DAILY PRN 12/05/16 12/05/16 Nystatin [Nyata] 1 ea TOP Q12H PRN 12/26/16 12/26/16 Oxygen 2 l BLADIMIR PRN MDD via nasal cannula 12/26/16 Scopolamine [Transderm-Scop] 1 each TD Q72H 12/26/16 12/26/16 - Allergies Allergies/Adverse Reactions: Allergies Allergy/AdvReac Type Severity Reaction Status Date / Time No Known Drug Allergies Allergy Verified 03/10/16 21:52 Review of Systems - Ears, Nose & Throat Ears, Nose & Throat: reports: Hearing loss - Cardiovascular Cardiovascular: denies: Edema - Neurological Neurological: reports: Memory problems - Other Findings Other Findings: Unable to obtain due to dementia. Physical Exam - Vital Signs Temperature: 96.3 F Pulse Rate: 75 Respiratory Rate: 15 Blood Pressure: 141/95 - Physical Exam General Appearance: positive: No acute distress, Alert Eyes Bilateral: positive: EOMI, No lid inflammation, Conjunctivae nml, No scleral icterus ENT: positive: No signs of dehydration Neck: positive: Thyroid nml, No JVD, Trachea midline Cardiovascular: positive: Regular rate & rhythm Respiratory: positive: No respiratory distress Skin: positive: No symptoms Extremities: positive: Nml appearance, No pedal edema Neurologic/Psychiatric: positive: Disoriented to place, Disoriented to time, Weakness, Unintelligible speech Palliative Care - POLST Patient has POLST: Yes POLST Status: DNR, Comfort Measures Pain: No pain Tiredness/Fatigue: None Drowsiness/Sedation: None Nausea: None Depression: None Anxiety: None Dyspnea: None Anorexia: None Sleep: Sleeps well Constipation: No Performance Status: Current level of functioning: Advanced dementia, minimal verbalization, requires assistance with all ADLs and repositioning, mobility via wheelchair, sleeps 70-80% of time. Palliative Care Performance Status: 50% FAST: 7B - Palliative Care Discussion: Who is present: Patient, nursing and myself Surrogate decision maker: Son/DPOA Ace Wellington ([place]) . Daughter Flores Kramer, . Son Abdelrahman Wellington, Most important goals: Comfort, antibiotics for comfort, avoid hospitalization, transition in Hospice when appropriate. Her son approved starting Home Health for wound care and appreciates the follow up. Impression and Recommendations - Palliative Care Impression: This is an 82-year-old woman with advanced Alzheimer's dementia, with slowly declining functionality and a relatively good quality of life. She still participates in facility functions and enjoys the music volunteer. She continues to be at risk for aspiration pneumonia but is stable and without symptom currently. She has an unstageable coccyx wound and would benefit from Home Health wound care and an AP mattress to promote healthy skin integrity as well as reduce reoccurrence of decubitus ulcers while in bed. Recommendations/Counseling Done: Advanced Alzheimer's dementia: Continued stable, slow, steady decline, no behavioral disturbance. Monitor for mood, behavior changes. Continue hydroxyzine for neuropsychiatric scratching. Coccyx wound: Unstageable, open 1.3x1.1cm pressure ulcer. Dress with foam border dressing if available and change every 2 days and PRN. If foam border dressing is not available, use zinc oxide barrier cream/ointment BID after pericare. Recommend obtaining an air pressure mattress to promote healthy skin integrity as well as reduce reoccurrence of decubitus ulcers while in bed. Referred to Home Health for wound care. Follow up with nursing in 3-7 days. Time Spent: 20 minutes with greater than 50% of this spent in counselling, evaluation, coordination of care, and weighing benefits and burdens of interventions for coccyx pressure wound.
== END 2017-01-13 12:31 | disposition home or self-care (01) ==
LOC: PC 12:30
PROVIDERS: ATTEND Nurse Practitioner
DX: Z51.5 Encounter for palliative care (principal); G30.9 Alzheimer's disease, unspecified; F02.80 Dementia in other diseases classified elsewhere, unspecified severity, without behavioral disturbance, psychotic disturbance, mood disturbance, and anxiety; L89.150 Pressure ulcer of sacral region, unstageable; Z99.3 Dependence on wheelchair; Z66 Do not resuscitate

== ENCOUNTER 2017-05-15 11:40 | Outpatient (CLI) | payer MEDICARE, MEDICAID ==
--- NOTE | 2017-05-15 14:24 | CONSULTATION NOTE ---
Palliative Care Follow Up - Referral Referring Provider: DANIELLE Houser Time of Visit: 05/15/2017. 11:40 - 12:05 Referral setting: Assisted living (Patient was seen in home setting because of considerable and taxing effort for her to leave the facility due to advanced dementia and being wheelchair-bound. Also I require access to the facility's records.) Referral Reason: Coccyx wound, [id number] for Group II surface - Information Sources Records reviewed: RN notes reviewed, Previous records reviewed History/Review of Systems obtained from: Patient, Family, Nursing Exam limitations: Clinical condition (advanced dementia; patient is non-verbal) - History of Present Illness Update Brief HPI Update: [id number] for Group II surface / low air loss mattress: This is an 82-year-old woman with severe and advanced Alzheimer's dementia, she has been in this dementia unit setting for several years. She has an open coccyx wound, stage III. Size is 1 cm x 2 cm x 0.3 cm. Due to lower extremity weakness, and advanced Alzheimer's dementia, patient is mobile only in wheelchair or is bedbound and requires a low air loss mattress to promote healthy skin integrity, as well as to reduce recurrence of decubitus ulcers while in bed. An MARNIE mattress was requested in early February 2017, when her coccyx wound was unstageable, and much effort was expended to get it in place, including multiple communications (verbal and written) to the [employer] sales representative who authorized the MARNIE mattress. Unfortunately it was never delivered, now the pressure wound has advanced to stage III, so a group 2 surface, i.e. low air loss mattress, is required to reinstate skin integrity. We have extensive notes on the efforts made to acquire the original Group 1 surface/MARNIE mattress, including the [employer] authorization #[id number] received on 04/30/17 for the MARNIE mattress and pump. The patient is calmly sitting in her wheelchair, waiting for lunch to be served. She is at her baseline behavior: mostly non-responsive, very pleasant, without eye contact, does not resist the assessment or physical touch. She gives no signs of pain or discomfort. Nursing staff reports no falls or behavior issues. Music volunteer noted on 04/17/17 that patient seemed more alert while eating dinner, but thinner and more confused. Medications/Allergies - Medications Home Medications: Ambulatory Orders Medication Instructions Recorded Confirmed Alendronate [Fosamax] 35 mg PO TITR 01/13/14 12/05/16 Calcium Carbonate/Vitamin D3 500 mg PO DAILY 01/13/14 12/05/16 [Oyster Shell 500 mg + Vit D Tb] Cholecalciferol (Vitamin D3) 1,000 units PO DAILY 01/13/14 12/05/16 [Vitamin D-3] Citalopram [CeleXA] 20 mg PO DAILY 01/13/14 12/05/16 Docusate Sodium 100 mg ORAL DAILY 01/13/14 12/05/16 Hydroxyzine HCl 25 mg ORAL DAILY 01/13/14 12/05/16 Senna [Senokot] 17.2 mg PO QPM 03/10/16 12/05/16 Acetaminophen 650 mg PO Q6H PRN 12/05/16 12/05/16 Hydrocortisone Acetate 25 mg [place] DAILY PRN 12/05/16 12/05/16 Ipratropium/Albuterol Sulfate 1 inhaler PO Q4H PRN 12/05/16 12/05/16 [Iprat-Albut 0.5-3(2.5) mg/3 ml] Magnesium Hydroxide [Milk of 30 ml PO Q1H PRN 12/05/16 12/05/16 Magnesia] Morphine Sulfate [Morphine Sulf 10 mg PO Q1H PRN 12/05/16 12/05/16 Oral (Roxanol)] Polyethylene Glycol 3350 [Miralax] 17 gm PO DAILY PRN 12/05/16 12/05/16 Nystatin [Nyata] 1 ea TOP Q12H PRN 12/26/16 12/26/16 Oxygen 2 l BLADIMIR PRN MDD via nasal cannula 12/26/16 Scopolamine [Transderm-Scop] 1 each TD Q72H 12/26/16 12/26/16 - Allergies Allergies/Adverse Reactions: Allergies Allergy/AdvReac Type Severity Reaction Status Date / Time No Known Drug Allergies Allergy Verified 03/10/16 21:52 Review of Systems - Constitutional Constitutional: reports: Weight gain (Weight gain of 5 pounds over 10 months. 152.2 lbs on 04/24/17. 147.2 lbs on 05/25/16). denies: Poor appetite - Ears, Nose & Throat Ears, Nose & Throat: reports: Hearing loss - Gastrointestinal Gastrointestinal: reports: Constipation - Genitourinary Genitourinary: reports: Incontinence - Musculoskeletal Musculoskeletal: reports: Muscle weakness, Assistive devices (wheelchair), Transfer issues - Integumentary Integumentary: reports: Lesions (small, healing scabs on back of hands, and near lips, from self-scratching) - Neurological Neurological: reports: Memory problems - Psychiatric Psychiatric: denies: Behavior disturbances Physical Exam - Vital Signs Temperature: 97.0 F Pulse Rate: 67 O2 Saturation: 95 Blood Pressure: 142/80 - Physical Exam General Appearance: positive: No acute distress, Alert, Nonresponsive Eyes Bilateral: positive: EOMI, No lid inflammation, Conjunctivae nml, No scleral icterus, Other (Eyes closed most of the time. When she opens them, she does not hold eye contact; she focuses in the distance.) ENT: positive: No signs of dehydration, Oral lesions (small healing scabs around lips. Scratching?) Neck: positive: Trachea midline Cardiovascular: positive: Regular rate & rhythm Neurologic/Psychiatric: positive: Disoriented to person, Disoriented to place, Disoriented to time, Unintelligible speech, Flat affect Palliative Care - POLST Patient has POLST: Yes POLST Status: DNR, Comfort Measures Performance Status: Advanced dementia with occasional, non-intelligible single words. Requires extensive assistane with all ADLs and repositioning. Sleeps 70-80% of time. FAST score of 7c. - Palliative Care Discussion: I spoke to Armaan Wellington ([place]), the patient's son and [facility] regarding the coccyx wound and explained to him the hiccup with obtaining an appropriate mattress surface. He was grateful for the update. Impression and Recommendations - Palliative Care Impression: This is an 82-year-old woman with advanced Alzheimer's dementia who is slowly and steadily declining in functionality and cognition. She continues to have a relatively good quality of life, enjoying the music volunteer's monthly visits, as well as the various social activities offered by the facility. Her coccyx wound has advanced to stage III and a low air loss mattress is being requested. The MARNIE mattress was never successfully obtained, and now the wound has worsened and requires a group II surface. Palliative care will continue to oversee and monitor the patient, and will refer to hospice when appropriate. Recommendations/Counseling Done: Coccyx pressure wound, stage III: Continue wound care as ordered by Home Health Nursing. Requested a Group II surface / low air loss mattress. We never did receive the Group I / MARNIE mattress originally recommended back in December 2016. Constipation: 4 days without a bowel movement last week. Discontinue docusate. Continue Senna 2 tabs daily. Change Miralax from PRN to routine, 17g daily by mouth. Advanced care planning: POLST is DNR and comfort measures. Music volunteer continues to visit, last visit was 04/17/17. Time Spent: 25 minutes were spent with more than 50% of the time spent on counseling, education, and coordination of care regarding constipation, wound care, obtaining durable medical equipment, and medicine reconciliation.
== END 2017-05-15 11:41 | disposition home or self-care (01) ==
LOC: PC 11:40
PROVIDERS: ATTEND Nurse Practitioner
DX: Z51.5 Encounter for palliative care (principal); K59.00 Constipation, unspecified; G30.9 Alzheimer's disease, unspecified; F02.80 Dementia in other diseases classified elsewhere, unspecified severity, without behavioral disturbance, psychotic disturbance, mood disturbance, and anxiety; Z99.3 Dependence on wheelchair; M62.81 Muscle weakness (generalized); L89.153 Pressure ulcer of sacral region, stage 3; Z66 Do not resuscitate

== ENCOUNTER 2017-05-28 03:59 | Outpatient (CLI) | payer MEDICARE, MEDICAID | END 2017-05-28 04:00 | disposition critical access hospital (66) | LOC: EMS 03:59 | PROVIDERS: ATTEND Surgery | DX: S01.21XA Laceration without foreign body of nose, initial encounter (principal); S09.93XA Unspecified injury of face, initial encounter; W06.XXXA Fall from bed, initial encounter; Y92.122 Bedroom in nursing home as the place of occurrence of the external cause | CPT/HCPCS: A0425; A0429 ==

== ENCOUNTER 2017-05-28 04:12 | Emergency (ER) | payer MEDICARE, MEDICAID ==
--- NOTE | 2017-05-28 04:38 | ED Physician Documentation ---
PD HPI HEAD INJURY - Stated complaint Stated Complaint: FALL FROM BED - Chief complaint Chief Complaint: Trauma Hd/Nk - History obtained from History obtained from: EMS - History of Present Illness Mechanism of head injury: Fell Where head injury occurred: Home Location of injury: Front Recently seen: Not recently seen - Additional information Additional information: Patient is an 82 year old female with a history of dementia, DNR/DNR comfort measures only who was brought in from [facility] after being found down with blood on her face. Patient likely rolled from bed and staff thinks they found part of a tooth. Patient is non verbal upon initial evaluation but does have ecchymosis and bleeding. PD PAST MEDICAL HISTORY - Past Medical History Past Medical History: Yes Cardiovascular: None Respiratory: None Neuro: Alzhiemer's, Dementia Endocrine/Autoimmune: None GI: Chronic constipation Musculoskeletal: Osteoarthritis - Past Surgical History Past Surgical History: No - Present Medications Home Medications: Ambulatory Orders Medication Instructions Recorded Confirmed Alendronate [Fosamax] 35 mg PO TITR 01/13/14 12/05/16 Calcium Carbonate/Vitamin D3 500 mg PO DAILY 01/13/14 12/05/16 [Oyster Shell 500 mg + Vit D Tb] Cholecalciferol (Vitamin D3) 1,000 units PO DAILY 01/13/14 12/05/16 [Vitamin D-3] Citalopram [CeleXA] 20 mg PO DAILY 01/13/14 12/05/16 Docusate Sodium 100 mg ORAL DAILY 01/13/14 12/05/16 Hydroxyzine HCl 25 mg ORAL DAILY 01/13/14 12/05/16 Senna [Senokot] 17.2 mg PO QPM 03/10/16 12/05/16 Acetaminophen 650 mg PO Q6H PRN 12/05/16 12/05/16 Hydrocortisone Acetate 25 mg [place] DAILY PRN 12/05/16 12/05/16 Ipratropium/Albuterol Sulfate 1 inhaler PO Q4H PRN 12/05/16 12/05/16 [Iprat-Albut 0.5-3(2.5) mg/3 ml] Magnesium Hydroxide [Milk of 30 ml PO Q1H PRN 12/05/16 12/05/16 Magnesia] Morphine Sulfate [Morphine Sulf 10 mg PO Q1H PRN 12/05/16 12/05/16 Oral (Roxanol)] Polyethylene Glycol 3350 [Miralax] 17 gm PO DAILY PRN 12/05/16 12/05/16 Nystatin [Nyata] 1 ea TOP Q12H PRN 12/26/16 12/26/16 Oxygen 2 l BLADIMIR PRN MDD via nasal cannula 12/26/16 Scopolamine [Transderm-Scop] 1 each TD Q72H 12/26/16 12/26/16 - Allergies Allergies/Adverse Reactions: Allergies Allergy/AdvReac Type Severity Reaction Status Date / Time No Known Drug Allergies Allergy Verified 03/10/16 21:52 - Social History Does the pt smoke?: No Smoking Status: Never smoker Does the pt drink ETOH?: No Does the pt have substance abuse?: No - Immunizations Immunizations are current?: Yes Immunizations: TDAP >10years/unknown - POLST Patient has POLST: Yes PD ED PE NORMAL - Cardiac Cardiac: RRR - Respiratory Respiratory: No respiratory distress - Abdomen Abdomen: Soft, Non distended PD ED PE EXPANDED - General General: Other (minimally responsive) - HEENT HEENT: Head injury (ecchymosis and swellingn of left face, 2cm laceration lateral to left nare), Dental trauma - Eyes Eyes: PERRL - GCS Eye Opening: None Motor: Withdraws to Pain Verbal: Inappropriate Total: 8 Results - Vitals Vitals: Vital Signs - 24 hr 05/28/17 04:19 Temperature 36.1 C L Heart Rate 85 Respiratory 17 Rate Blood Pressure 133/67 H O2 Saturation 93 Oxygen O2 Source Room air - Rads (name of study) ct head Radiology: Final report received (no acute findings) ct facial bones Radiology: Final report received (no acute fracture or dislocation) ct cervical spine Radiology: Final report received (no acute fracture or dislocation) Procedures - Laceration (location) nose Length in cm: 2 Wound type: Linear Neurovascular status: Sensory intact, Vascular intact Wound Preparation: Chlorhexadine, Irrigated copiously NS Skin layer closure: Dermabond, Steri strips Other: Patient tolerated well Complexity: Simple PD MEDICAL DECISION MAKING - ED course Complexity details: reviewed old records, reviewed results, re-evaluated patient , considered differential ED course: Patient was seen and examined at bedside. patient was sent for imaging. when patient returned her wounds were cleaned and repaired. patient had no acute findings on her imaging and is comfort measures only. Patient was appropriate to return to the [facility]. Departure - Departure Disposition: 01 Home, Self Care Clinical Impression: Laceration Condition: Good Instructions: ED Laceration Facial Skin Glue Follow-Up: primary,care provider [Other] - As Needed Comments: The symptoms today were caused by the laceration on the patient's nose. there were no acute abnormalities on the imaging. The nose was repaired with glue and steri-strips and should not be washed for the next 24-48 hours. Patient can be treated with tylenol if she complains of pain.
--- NOTE | 2017-05-28 05:10 | CT Preliminary Report ---
Exam: CT HEAD W/O IMPRESSION: Generalized age-related cortical atrophic changes without evidence of acute intracranial abnormality. [facility] SITE ID: [id number]
--- NOTE | 2017-05-28 05:12 | CT Report ---
EXAM: CT HEAD EXAM DATE: 05/28/2017 04:59 AM. CLINICAL HISTORY: Head pain, fall. COMPARISON: Brain CT from 05/21/2015. TECHNIQUE: Multiaxial CT images were obtained from the foramen magnum to the vertex. Reformats: Coron al. IV contrast: None. In accordance with CT protocol optimization, one or more of the following dose reduction techniques w ere utilized for this exam: automated exposure control, adjustment of mA and/or KV based on patient s ize, or use of iterative reconstructive technique. FINDINGS: Parenchyma: No intraparenchymal hemorrhage. No evidence of mass, midline shift, or CT findings of acu te infarction. Stoll-white differentiation is distinct. Mild diffuse chronic microangiopathic white ma tter changes are evident. Extraaxial Spaces: Normal for age. No subdural or epidural collections identified. Ventricles: The ventricles and cortical sulci are markedly enlarged, consistent with age-related tiss ue loss. Sinuses and Orbits: Small air-fluid levels are noted in the partially visualized maxillary sinuses. P ostsurgical changes from cataract extractions are noted in the globes. The mastoid sinuses are not op acified. Bones: New mild left frontal scalp swelling is noted without an underlying calvarial fracture. Other: Mild intracranial atherosclerosis is noted. IMPRESSION: Generalized age-related cortical atrophic changes without evidence of acute intracranial abnormality. [facility] Referring Provider Line: [phone] SITE ID: [id number]
--- NOTE | 2017-05-28 05:23 | CT Preliminary Report ---
Exam: CT CERVICAL SPINE W/O IMPRESSION: 1. No acute cervical spine fracture. 2. Moderate multilevel degenerative changes without high-grade spinal canal stenosis. [facility] SITE ID: [id number]
--- NOTE | 2017-05-28 05:28 | CT Preliminary Report ---
Exam: CT FACIAL BONES W/O IMPRESSION: No acute facial bone fracture. [facility] SITE ID: [id number]
--- NOTE | 2017-05-28 05:29 | CT Report ---
EXAM: CT CERVICAL SPINE WITHOUT CONTRAST DATE: 05/28/2017 04:59 AM. HISTORY: Head pain, fall. COMPARISONS: None. TECHNIQUE: Thin-section axial images were acquired of the cervical spine without contrast. Post-proce ssing: Coronal and sagittal reformats. Other: None. In accordance with CT protocol optimization, one or more of the following dose reduction techniques w ere utilized for this exam: automated exposure control, adjustment of mA and/or KV based on patient s ize, or use of iterative reconstructive technique. FINDINGS: Alignment: Degenerative grade 1 anterolisthesis is present at C4-C5 measuring 2-3 mm and at C7-T1 vineet suring 1-2 mm. Dextroscoliosis is suggested in the lower cervical region. Bones: No acute cervical spine fracture is identified. Interspace Levels/Facets: C1-C2: Mild degenerative changes are present anteriorly without craniocervical stenosis. C2-C3: Bilateral facet arthropathy is present without spinal canal or foraminal stenosis. C3-C4: Bilateral facet arthropathy is present without spinal canal or foraminal stenosis. C4-C5: Anterolisthesis is present with uncovering of the disk. The spinal canal is patent. There is m oderate left foraminal narrowing due to uncovertebral hypertrophy and facet arthropathy. The right fo ramen is patent. C5-C6: A posterior disk osteophyte complex is present without spinal canal stenosis. There is mild bi lateral foraminal narrowing due to uncovertebral hypertrophy and facet arthropathy. C6-C7: There is moderate bilateral foraminal narrowing due to uncovertebral hypertrophy. The spinal c anal is patent. C7-T1: The foramina and spinal canal are patent. Musculature: There is moderate diffuse fatty atrophy of the posterior paraspinal muscles. Other: No acute abnormality is seen in the remaining soft tissues of the neck. The lung apices are cl ear. IMPRESSION: 1. No acute cervical spine fracture. 2. Moderate multilevel degenerative changes without high-grade spinal canal stenosis. [facility] Referring Provider Line: [phone] SITE ID: [id number]
--- NOTE | 2017-05-28 05:32 | CT Report ---
EXAM: CT MAXILLOFACIAL WITHOUT CONTRAST EXAM DATE: 05/28/2017 04:59 AM. CLINICAL HISTORY: Head pain, fall. COMPARISONS: None. TECHNIQUE: Thin-section axial images were acquired of the face without contrast. Post-processing: Cor onal and sagittal reformats. Other: None. In accordance with CT protocol optimization, one or more of the following dose reduction techniques w ere utilized for this exam: automated exposure control, adjustment of mA and/or KV based on patient s ize, or use of iterative reconstructive technique. FINDINGS: Soft Tissue: No mass or fluid collection.The infratemporal fossa and parapharyngeal spaces are unrema rkable. Orbits: Postsurgical changes from cataract extractions are noted in the globes. Bones: No fracture or bone lesion. Temporomandibular Joints: The temporomandibular joints are symmetric and normally located. Sinuses: Small air-fluid levels are present in the maxillary sinuses. The mastoid sinuses are not opa cified. IMPRESSION: No acute facial bone fracture. [facility] Referring Provider Line: [phone] SITE ID: [id number]
[2017-05-28 06:09] VITALS: BP 116/58
== END 2017-05-28 07:03 | disposition home or self-care (01) ==
LOC: EDUNIT# → ED 04:12
DX: S01.21XA Laceration without foreign body of nose, initial encounter (principal); W06.XXXA Fall from bed, initial encounter; G30.9 Alzheimer's disease, unspecified; F02.80 Dementia in other diseases classified elsewhere, unspecified severity, without behavioral disturbance, psychotic disturbance, mood disturbance, and anxiety; Y92.009 Unspecified place in unspecified non-institutional (private) residence as the place of occurrence of the external cause
CPT/HCPCS: 12011; 70450; 70486; 72125; 99283

== ENCOUNTER 2017-05-28 07:03 | Outpatient (CLI) | payer MEDICARE, MEDICAID | END 2017-05-28 07:04 | disposition home or self-care (01) | LOC: EMS 07:03 | PROVIDERS: ATTEND Surgery | DX: S01.21XA Laceration without foreign body of nose, initial encounter (principal); W06.XXXA Fall from bed, initial encounter | CPT/HCPCS: A0425; A0428 ==

== ENCOUNTER 2017-05-28 11:40 | Outpatient (CLI) | payer MEDICARE, MEDICAID ==
--- NOTE | 2017-05-28 16:41 | CONSULTATION NOTE ---
Palliative Care Follow Up - Referral Referring Provider: DANIELLE Houser Time of Visit: 05/28/2017. 11:40 - 12:10 Referral setting: Assisted living (Seen in home setting due to taxing and considerable effort required to leave the home secondary to advanced dementia and being wheelchair-bound. Also access to facility's records is required.) - Information Sources Records reviewed: RN notes reviewed, Previous records reviewed History/Review of Systems obtained from: Family, Caregiver, Nursing Exam limitations: Clinical condition (Advanced, end-stage dementia, non-verbal and non-responsive.) - History of Present Illness Update Brief HPI Update: This is an 82-year-old woman with severe advanced Alzheimer's dementia, she has been in this dementia unit setting for several years. Around 3 AM this morning she was found by nursing face down on the floor next to her bed, with bleeding injuries to her face and head. She was taken to ED, and returned later on the same morning. At the ED her wounds were cleaned and repaired, and there were no acute findings on her imaging. This assessment took place several hours after her return, the patient is calm and stable, sitting in her wheelchair waiting for lunch to be served. She has a hematoma around her left eye, and another hematoma above the left eyebrow and left confucianism area, which measures approximately 7 x 2.5 cm. She also has an abrasion on the left side of her nose, held together by Steri-Strip , and an abrasion on the left cheek that did not draw blood, and appears to be scratches from a rd basket that she fell on. Vital signs and cranial nerve tests are all normal, and nursing is continuing to monitor as per protocol. It was reported by nursing that they believe they found part of a tooth when they discovered her on the floor. I was unable to assess her mouth to confirm whether she lost or broke a tooth; there was no blood around her mouth. Patient appears to be at her baseline, without verbal response to my questions or assessments, but without resistance or any behavior issues. She does not make eye contact. She also does not appear traumatized or anxious from her experience this morning. In short she appears back at baseline, no wheezing, respiratory distress, or agitation. The coccyx wound per report by home health care nursing has not been healing, and so a new wound care approach has been started as of 05/26/2017. Home health nursing is coming twice weekly for wound care management. The group to a low air loss mattress has been delivered and the patient has been sleeping on it. Caregivers and nursing report no other new issues or concerns. Social History - Living Situation Living arrangement: Assisted living ([facility]) Living Situation: With caregiver(s) Support System: Her son/DPOA, Ace Wellington ([place]), lives in the region, at [facility]. She has another son, Abdelrahman, and a daughter Yael Kramer. Medications/Allergies - Medications Home Medications: Ambulatory Orders Medication Instructions Recorded Confirmed Calcium Carbonate/Vitamin D3 500 mg PO DAILY 01/13/14 05/28/17 [Oyster Shell 500 mg + Vit D Tb] Cholecalciferol (Vitamin D3) 1,000 units PO DAILY 01/13/14 05/28/17 [Vitamin D-3] Citalopram [CeleXA] 20 mg PO DAILY 01/13/14 05/28/17 Senna [Senokot] 17.2 mg PO QPM 03/10/16 05/28/17 Acetaminophen 650 mg PO Q6H PRN 12/05/16 05/28/17 Hydrocortisone Acetate 25 mg [place] DAILY PRN 12/05/16 05/28/17 Ipratropium/Albuterol Sulfate 1 inhaler PO Q4H PRN 12/05/16 05/28/17 [Iprat-Albut 0.5-3(2.5) mg/3 ml] Magnesium Hydroxide [Milk of 30 ml PO Q1H PRN 12/05/16 05/28/17 Magnesia] Morphine Sulfate [Morphine Sulf 10 mg PO Q1H PRN 12/05/16 05/28/17 Oral (Roxanol)] Polyethylene Glycol 3350 [Miralax] 17 gm PO DAILY PRN 12/05/16 05/28/17 Nystatin [Nyata] 1 ea TOP Q12H PRN 12/26/16 05/28/17 Scopolamine [Transderm-Scop] 1 each TD Q72H 12/26/16 05/28/17 - Allergies Allergies/Adverse Reactions: Allergies Allergy/AdvReac Type Severity Reaction Status Date / Time No Known Drug Allergies Allergy Verified 03/10/16 21:52 Review of Systems - Constitutional Constitutional: reports: Weakness, Poor appetite, Weight gain (154.8 lbs . 152.2 lbs 04/24/17. 147.8 lbs 03/29/17. 150.8 lbs 02/20/17. 153 lbs 12/28/16. 147.2 lbs 05/25/16. Patient has a good appetite) - Ears, Nose & Throat Ears, Nose & Throat: reports: Hearing loss, Other (Possible broken/missing tooth from today's fall. Unable to confirm.) - Cardiovascular Cardiovascular: denies: Edema - Gastrointestinal Gastrointestinal: reports: Constipation (Recent days with no BMs: 05/17, 05/21, 05/22 , 05/25, 05/27) - Genitourinary Genitourinary: reports: Incontinence. denies: Frequency - Musculoskeletal Musculoskeletal: reports: Limited range of motion, Muscle weakness, Assistive devices (wheelchair) - Neurological Neurological: reports: General weakness, Memory problems - Psychiatric Psychiatric: denies: Aggitation, Behavior disturbances - Hematologic/Lymphatic Hematologic/Lymphatic: reports: Recurrent infections (pneumonia) Physical Exam - Vital Signs Temperature: 97.7 F Pulse Rate: 78 O2 Saturation: 95 Blood Pressure: 123/80 - Physical Exam General Appearance: positive: No acute distress, Other (non reactive, does not interact with others) Eyes Bilateral: positive: Conjunctivae nml, No scleral icterus, Other ( extensive discoloration from hematoma around L eye) ENT: positive: No signs of dehydration, Other (7x2.5cm hematoma over L eyebrow extending to L confucianism; bandaged abrasion on L nostril, abrasions on L cheek) Neck: positive: No JVD, Trachea midline Cardiovascular: positive: Regular rate & rhythm, No murmur, No gallop Respiratory: positive: Diminished in bases (in RLL) Skin: positive: Bruising (facial), Pressure wound (coccyx, non-resolving. new wound care regimen started this week.) Neurologic/Psychiatric: positive: Disoriented to person, Disoriented to place, Disoriented to time, Flat affect, Other (tremor in R hand) Palliative Care - POLST Patient has POLST: Yes POLST Status: DNR, Comfort Measures Pain: No pain - Palliative Care Discussion: Telephoned sonArmaan (akvictor manuel Bello) to update him on patient's status. Nursing had already informed him of the fall and trip to ED. I reassured him she appeared at baseline and without agitatoin or trauma. He inquired about bed railings and I provided teaching regarding laws the facility must establish and their other safeguards they implement to minimuze falls or effects from falls. I also spoke to Yael the daughter, who also questioned whether railings were feasible. Both family members were appreciative of the update. Goal is still to keep patient comfortable and to transition to Hospice when criteria are met. She is at high risk of falls and for sequelae of pneumonia. She continues to have a (too) good appetite and to gain weight.. Impression and Recommendations - Palliative Care Impression: This is an 82-year-old woman with advanced Alzheimer's dementia, who is slowly and steadily declining in functionality and cognition. Very early this morning she was found on the floor next to her bed, taken to the ED where she was treated and returned to the facility this morning. She continues to be at high risk for repeated falls and for sequela of pneumonia. Family's goal is to maintain comfort and quality of life, and palliative care will continue to monitor, and will transition her to hospice when she meets the criteria. Recommendations/Counseling Done: Frequent falls: Patient had an injury fall out of bed early this morning, with abrasions and bruising to her face and the possible breakage/loss of a tooth, but unable to confirm. Patient is stable, monitoring will continue as per protocol. Coccyx wound, stage III: Group 2 surface/low air loss mattress has been delivered and installed. Home health wound care continues, they have started a new regimen for the coccyx wound. Constipation: Docusate was discontinued around 05/15/17 and MiraLAX routine was started around May 15. Patient has episodic days of constipation, continue to monitor and adjust medications as indicated. Advanced care planning: [facility] is DNR and comfort measures. Palliative care will continue to monitor and will transition to hospice when criteria are met. Music volunteer continues to visits quite regularly. Last visit was 05/09/17. Follow up 2-3 weeks and as needed. Time Spent: 30 minutes were spent with more than 50% of the time spent on counseling, education, and coordination of care.
== END 2017-05-28 11:41 | disposition home or self-care (01) ==
LOC: PC 11:40
PROVIDERS: ATTEND Nurse Practitioner
DX: Z51.5 Encounter for palliative care (principal); S00.12XD Contusion of left eyelid and periocular area, subsequent encounter; S00.31XD Abrasion of nose, subsequent encounter; S00.81XD Abrasion of other part of head, subsequent encounter; L89.153 Pressure ulcer of sacral region, stage 3; K59.00 Constipation, unspecified; G30.9 Alzheimer's disease, unspecified; F02.80 Dementia in other diseases classified elsewhere, unspecified severity, without behavioral disturbance, psychotic disturbance, mood disturbance, and anxiety; Z66 Do not resuscitate; Z99.3 Dependence on wheelchair; Z91.81 History of falling

== ENCOUNTER 2017-07-03 08:00 | Outpatient (CLI) | payer MEDICARE, MEDICAID | END 2017-07-03 08:01 | disposition home or self-care (01) | LOC: LAB.R 08:00 | PROVIDERS: ATTEND Family Medicine | DX: L89.150 Pressure ulcer of sacral region, unstageable (principal); L08.9 Local infection of the skin and subcutaneous tissue, unspecified | CPT/HCPCS: 87070; 87077; 87205 ==

== ENCOUNTER 2017-07-09 12:30 | Outpatient (CLI) | payer MEDICARE, MEDICAID ==
--- NOTE | 2017-07-09 18:36 | CONSULTATION NOTE ---
Palliative Care Follow Up - Referral Referring Provider: DANIELLE Houser Time of Visit: 07/09/2017. 12:30 - 13:10 Referral setting: Assisted living (Seen in home setting due to taxing and considerable effort required to leave the home due to advanced, end-stage dementia snf being wheelchair bound. Also access to facility's records is required.) Referral Reason: Infected coccyx pressure wound - Information Sources Records reviewed: RN notes reviewed, Previous records reviewed History/Review of Systems obtained from: Nursing Exam limitations: Clinical condition (Advanced, end-stage dementia, non-verbal and non-responsive) - History of Present Illness Update Brief HPI Update: -This is a 89-year-old woman with severe advanced Alzheimer's dementia. She has been in this dementia unit setting for several years. -Her chronic sacral pressure wound, non-healing, unstageable, is positive for Proteus Mirabella's with 2+ growth and Pseudomonas. -She is being treated with Bactrim DS twice a day for 7 days. -She also has small scabbed wound on L side of nose, and tear on L moncada, both healing. -[facility] nursing is managing the wound care. -An indwelling catheter was placed because her incontinence was severely affecting the sacral wound. -Nursing reports no improvement in wound so far. Antibiotics were started 2-1/ 2 days ago. -Patient has lost 13 pounds (8.3%) in the past month. See ROS for weight details. -Patient still has a good appetite and she requires feeding. I am ordering meal monitoring. -She is on mechanical soft diet, nursing will do a trial of pure to see if she accepts this texture. -Patient does not cough, but she does pocket food. -Patient is at her baseline cognitively and functionally during today's assessment. She is being fed by an periodicals library assistant, is wheelchair bound, cooperative , non-verbal, no eye contact, no apparent distress or signs of pain. -She has not had a bowel movement in 5 days. Social History - Living Situation Living arrangement: Assisted living ([facility] dementia unit.) Living Situation: With caregiver(s) Support System: Son/DPAC Wellington ([place]) lives in the region at [facility]. Her other son is Abdelrahman, and she has a daughter, Yael Kramer. Medications/Allergies - Medications Home Medications: Ambulatory Orders Medication Instructions Recorded Confirmed Cholecalciferol (Vitamin D3) 1,000 units PO DAILY 01/13/14 07/09/17 [Vitamin D-3] Citalopram [CeleXA] 20 mg PO DAILY 01/13/14 07/09/17 Senna [Senokot] 17.2 mg PO QPM 03/10/16 07/09/17 Acetaminophen 650 mg PO Q6H PRN 12/05/16 07/09/17 Hydrocortisone Acetate 25 mg [place] DAILY PRN 12/05/16 07/09/17 Ipratropium/Albuterol Sulfate 1 inhaler PO Q4H PRN 12/05/16 07/09/17 [Iprat-Albut 0.5-3(2.5) mg/3 ml] Magnesium Hydroxide [Milk of 30 ml PO Q1H PRN 12/05/16 07/09/17 Magnesia] Morphine Sulfate [Morphine Sulf 10 mg PO Q1H PRN 12/05/16 07/09/17 Oral (Roxanol)] Polyethylene Glycol 3350 [Miralax] 17 gm PO DAILY PRN 12/05/16 07/09/17 Nystatin [Nyata] 1 ea TOP Q12H PRN 12/26/16 07/09/17 Scopolamine [Transderm-Scop] 1 each TD Q72H 12/26/16 07/09/17 Fleet Glycerin Supp 1 supp [place] DAILY PRN 07/09/17 Magnesium Hydroxide [Milk of 30 ml PO DAILY PRN 07/09/17 07/09/17 Magnesia] Sodium Phosphate,[place]-Dibasic 1 appful [place] DAILY PRN 07/09/17 07/09/17 [Enema Ready To Use] Sulfamethox/Trimeth 800/160 1 tab PO BID MDD for 7 days 07/09/17 07/09/17 [Bactrim Ds] - Allergies Allergies/Adverse Reactions: Allergies Allergy/AdvReac Type Severity Reaction Status Date / Time No Known Drug Allergies Allergy Verified 03/10/16 21:52 Review of Systems - Constitutional Constitutional: denies: Poor appetite, Weight loss (13 lb weight loss (8.4%) between May and June: 141.8 lbs 07/09/17. 141.8 lbs 06/24/17. 154.8 lbs . 152.2 lbs 04/24/17. 147.8 lbs 03/29/17. 150.8 lbs 02/20/17. 153 lbs 11/05/16. 147.2 lbs 05/25/16.) - Ears, Nose & Throat Ears, Nose & Throat: reports: Hearing loss, Other ("pockets" food during meals.) - Genitourinary Genitourinary: reports: Incontinence - Musculoskeletal Musculoskeletal: reports: Limited range of motion, Assistive devices ( wheelchair bound), Transfer issues (requires full assistance) - Neurological Neurological: reports: Memory problems, Other (non verbal) - Psychiatric Psychiatric: denies: Behavior disturbances - Hematologic/Lymphatic Hematologic/Lymphatic: reports: Recurrent infections (pneumonia) - Other Findings Other Findings: Unable to obtain complete ROS due to advanced dementia Physical Exam - Vital Signs Temperature: 97.5 F Pulse Rate: 75 O2 Saturation: 95 (room air) Blood Pressure: 141/80 (L wrist cuff) - Physical Exam General Appearance: positive: No acute distress, Alert, Lethargic, Nonresponsive Eyes Bilateral: positive: EOMI, No lid inflammation, Conjunctivae nml, No scleral icterus ENT: positive: No signs of dehydration, Oral lesions (95) Neck: positive: No JVD, Trachea midline Cardiovascular: positive: Regular rate & rhythm, No murmur, No gallop Respiratory: positive: No respiratory distress, Breath sounds nml Abdomen: positive: Soft, Tenderness (above pelvic bone, mid-abdoen). negative: Organomegaly, Taut Skin: positive: Wound (small healing wound L side of nose), Other (purple-red discoloration on dorsal region of L hand, 1.5x0.75cm) Extremities: negative: No pedal edema Neurologic/Psychiatric: positive: Disoriented to person, Disoriented to place, Disoriented to time, Flat affect, Other (non-verbal, no eye contact) Palliative Care - POLST POLST Status: DNR, Comfort Measures Pain: No pain Anorexia: None Constipation: Yes (x 5 days), Managed (ordered Fleets enema and disimpaction) - Palliative Care Discussion: Left voicemail for son/DPOA. He had a prior conversation with palliative care MACHIN[employer] a few days ago discussing patient's ongoing decline and that infections/ skin breakdown can signal that the body is deteriorating. Impression and Recommendations - Palliative Care Impression: This is an 82-year-old woman with advanced Alzheimer's dementia who is slowly and steadily declining in functionality and cognition. Her sacral wound has become infected and is being treated with Bactrim DS. She has lost 13 pounds ( 8.4%) since May. She continues to eat meals, nursing will start monitoring her intake. The family's goal remains maintaining her comfort and quality of life, palliative care will continue to monitor her infection and weight loss and functionality and will transition to hospice when appropriate. It appears she is approaching that point.. Recommendations/Counseling Done: Coccyx wound, unstageable, with proteus mirabilis and psudomonas infection: Not healing or improving. Bactrim DS BID for 7 days, started 2.5 days ago. HH RN managing wound with 3 visits weekly. Monitor closely for improvement, or if infection does not resolve, may indicate transition to hospice is appropriate. Constipation: No bowel movement for 5 days. She is on Miralax 17g daily and senna 17.2mg daily. Nursing will administer Fleets enema and disimpaction if indicated. Weight loss: 13 lbs and 8.4% weight loss in one month (May to June). Increased weight monitoring to 2x/month. Patient is still eating, and is fed by assistants. Appetite appears good, start monitoring meal intake. Facility will trial a puree diet, since patient pockets food. She is currently on mechanical soft. Dementia: Stable, without behaviors. FAST stage 7e. Advanced care planning: Family's goals remained comfort care and transition to hospice when appropriate. Palliative care discussed patient's decline a few days ago with Max Crook. Left a voicemail for him after today's visit. Follow up next week. Time Spent: 40 minutes were spent with more than 50% of the time spent on counseling, education, and coordination of care.
== END 2017-07-09 12:31 | disposition home or self-care (01) ==
LOC: PC 12:30
PROVIDERS: ATTEND Nurse Practitioner
DX: Z51.5 Encounter for palliative care (principal); L89.150 Pressure ulcer of sacral region, unstageable; K59.00 Constipation, unspecified; R63.4 Abnormal weight loss; G30.9 Alzheimer's disease, unspecified; F02.80 Dementia in other diseases classified elsewhere, unspecified severity, without behavioral disturbance, psychotic disturbance, mood disturbance, and anxiety; Z99.3 Dependence on wheelchair; Z96.0 Presence of urogenital implants; Z79.891 Long term (current) use of opiate analgesic; Z79.899 Other long term (current) drug therapy; Z66 Do not resuscitate

== ENCOUNTER 2017-08-06 13:50 | Outpatient (CLI) | payer MEDICARE, MEDICAID ==
--- NOTE | 2017-08-06 20:09 | CONSULTATION NOTE ---
Palliative Care Follow Up - Referral Referring Provider: DANIELLE Houser Time of Visit: 08/06/2017. 13:50 - 14:20 Referral setting: Assisted living (Seen in home setting due to taxing and considerable effort required to leave the home due to advanced, end-stage dementia and being wheelchair bound. Also access to facility's records is required.) Referral Reason: Weight loss, reported change in appetite - Information Sources Records reviewed: RN notes reviewed, Previous records reviewed History/Review of Systems obtained from: Family (Son Abdelrahman), Caregiver, Nursing Exam limitations: Clinical condition (Advanced, end-stage dementia; non-verbal and non-responsive) - History of Present Illness Update Brief HPI Update: -89-year-old woman with severe advanced Alzheimer's dementia. She has lived in this facility for several years. -Chronic sacral pressure wound is non-healing and unstageable. A culture is scheduled for next week. Her Bactrim DS regimen has been completed. [facility]. -Patient's went from 141.8 pounds on 07/09-138 pounds on 07/24. Some staff reported poor appetite, which is very uncharacteristic for this patient. -During today's assessment the patient was being fed by one of her regular caregivers, Jordon, and in fact she had a hearty appetite and had finished everything. -This caregiver reports that the patient never has a feeding problem with her. -Spoke at length with son Abdelrahman, who was questioning why she had been switched to a pured diet. -His concern was that she was not getting as much enjoyment out of the pured texture as she did with regular texture. -The reason for the switch was that patient had started pocketing her food and that has ameliorated with the change in texture. -Today she weighs 143 pounds, a 5 lb increase since July 24 (138 lbs). Social History - Living Situation Living arrangement: Assisted living ([facility] dementia unit) Living Situation: With caregiver(s) Support System: One son, Ace Dueñas" lives in the region. She has another son, Abdelrahman, with whom I spoke today, and daughter Yael Kramer. Medications/Allergies - Medications Home Medications: Ambulatory Orders Medication Instructions Recorded Confirmed Cholecalciferol (Vitamin D3) 1,000 units PO DAILY 01/13/14 08/07/17 [Vitamin D-3] Citalopram [CeleXA] 20 mg PO DAILY 01/13/14 08/07/17 Senna [Senokot] 17.2 mg PO QPM 03/10/16 08/07/17 Acetaminophen 650 mg PO Q6H PRN 12/05/16 08/07/17 Hydrocortisone Acetate 25 mg [place] DAILY PRN 12/05/16 08/07/17 Ipratropium/Albuterol Sulfate 1 inhaler PO Q4H PRN 12/05/16 08/07/17 [Iprat-Albut 0.5-3(2.5) mg/3 ml] Magnesium Hydroxide [Milk of 30 ml PO Q1H PRN 12/05/16 08/07/17 Magnesia] Polyethylene Glycol 3350 [Miralax] 17 gm PO DAILY PRN 12/05/16 08/07/17 Nystatin [Nyata] 1 ea TOP Q12H PRN 12/26/16 08/07/17 Scopolamine [Transderm-Scop] 1 each TD Q72H 12/26/16 08/07/17 Fleet Glycerin Supp 1 supp [place] DAILY PRN 07/09/17 08/07/17 Magnesium Hydroxide [Milk of 30 ml PO DAILY PRN 07/09/17 08/07/17 Magnesia] Sodium Phosphate,[place]-Dibasic 1 appful [place] DAILY PRN 07/09/17 08/07/17 [Enema Ready To Use] - Allergies Allergies/Adverse Reactions: Allergies Allergy/AdvReac Type Severity Reaction Status Date / Time No Known Drug Allergies Allergy Verified 03/10/16 21:52 Review of Systems - Constitutional Constitutional: reports: Weakness, Weight gain (Weight gain after a weight loss over several months. 143 lbs 08/06. 138 lbs 07/24. 141.8 lbs 07/09. 141.8 lbs 06/24. 154.8 lbs 05/22. 152.8 lbs 04/24.), Other (Differing reports about her appetite - some staff report it is worse, but the caregiver who feeds her says her appetite is good. She shows a 5 lb gain this past month.). denies: Poor appetite - Ears, Nose & Throat Ears, Nose & Throat: reports: Hearing loss, Other (pockets good, but that has improved since starting puree texture.) - Respiratory Respiratory: denies: Cough, Sputum production - Genitourinary Genitourinary: reports: Incontinence - Musculoskeletal Musculoskeletal: reports: Limited range of motion, Assistive devices ( wheelchair bound), Transfer issues (requires full assistance) - Neurological Neurological: reports: General weakness, Memory problems, Other (nonverbal) - Psychiatric Psychiatric: denies: Behavior disturbances - Hematologic/Lymphatic Hematologic/Lymphatic: reports: Recurrent infections (pneumonia) Physical Exam - Vital Signs Temperature: 96.6 F Pulse Rate: 83 O2 Saturation: 95 (room air) Blood Pressure: 124/66 (R wrist) - Physical Exam General Appearance: positive: No acute distress, Alert Eyes Bilateral: positive: No lid inflammation, Conjunctivae nml, No scleral icterus ENT: positive: No signs of dehydration Neck: positive: Trachea midline Cardiovascular: positive: Regular rate & rhythm Respiratory: positive: Chest non-tender, No respiratory distress, Breath sounds nml Skin: positive: Pressure wound (chronic sacral wound, followed by HH RN, they will culture it next week) Extremities: positive: No pedal edema, Other (warm extremities) Neurologic/Psychiatric: positive: Disoriented to person, Disoriented to place, Disoriented to time, Flat affect Palliative Care - POLST Patient has POLST: Yes POLST Status: DNR, Comfort Measures Pain: No pain Constipation: Managed - Palliative Care Discussion: Lengthy discussion by telephone with son Abdelrahman. He is supportive of transition to hospice when appropriate, and palliative care monitoring and oversight until then. He had questions and concerns about the change in diet texture. His concern is that the puree texture is not as pleasurable for his mother. Explained that nursing had made the change to ameliorate the patient's "food pocketing," which is a choking risk. The pocketing has improved although she does "pocket" her coffee now, as reported by su Ruvalcaba. Impression and Recommendations - Palliative Care Impression: This is an 82-year-old woman with advanced Alzheimer's dementia with slow and steady functional and cognitive decline. She continues to be followed by home health wound care for a chronic sacral wound, which will be cultured next week. She has had a slight weight gain over the past month of 5 pounds and apparently still retains a good appetite. Palliative care will continue to provide oversight and monitoring with eventual transition to hospice when indicated. Recommendations/Counseling Done: Advanced Alzheimer's dementia with depression: FAST 7e. Stable, without behaviors. Continue citalopram Weight loss: Improved.....gain of 5 lbs between June and August 06, today's weight is 143 lbs. Her aid that feeds her at lunch reports her appetite is good. She is now on puree texture due to habit of "pocketing" food and the choking risk that entails. Constipation: improved. Continue Miralax daily and Senna 2 tabs daily. Coccyx wound, chronic: Managed by nursing. Bactrim DS x 7 days was administered last month. Another culture is scheduled for next week. Advanced care planning: No changes to POLST: DNR and comfort. Extensive discussion with Abdelrahman, he is supportive of hospice transition when appropriate. Follow up approximately monthly. Time Spent: 30 minutes were spent with more than 50% of the time spent on counseling, education, and coordination of care.
== END 2017-08-06 13:51 | disposition home or self-care (01) ==
LOC: PC 13:50
PROVIDERS: ATTEND Nurse Practitioner
DX: Z51.5 Encounter for palliative care (principal); G30.9 Alzheimer's disease, unspecified; F02.80 Dementia in other diseases classified elsewhere, unspecified severity, without behavioral disturbance, psychotic disturbance, mood disturbance, and anxiety; R63.4 Abnormal weight loss; K59.00 Constipation, unspecified; L89.150 Pressure ulcer of sacral region, unstageable; Z66 Do not resuscitate; Z99.3 Dependence on wheelchair; Z79.899 Other long term (current) drug therapy

== ENCOUNTER 2017-08-10 10:20 | Outpatient (CLI) | payer MEDICARE, MEDICAID | END 2017-08-10 10:21 | LOC: LAB.R 10:20 | PROVIDERS: ATTEND Family Medicine | DX: L08.9 Local infection of the skin and subcutaneous tissue, unspecified (principal); L89.150 Pressure ulcer of sacral region, unstageable | CPT/HCPCS: 81599; 87070; 87077; 87181; 87186; 87205 ==

== ENCOUNTER 2017-09-03 10:30 | Outpatient (CLI) | payer MEDICARE, MEDICAID | END 2017-09-03 23:59 | disposition home or self-care (01) | LOC: LAB.R 10:30 | PROVIDERS: ATTEND Family Medicine | DX: L89.150 Pressure ulcer of sacral region, unstageable (principal) | CPT/HCPCS: 87070; 87077; 87181; 87205 ==